=== PATIENT | male | born 1990 | race Caucasian/White ===

== ENCOUNTER → 2017-11-07 15:29 | Outpatient (CLI) | payer OTHER | END | disposition home or self-care (01) | LOC: LAB 15:29 | DX: Z11.3 Encounter for screening for infections with a predominantly sexual mode of transmission (principal) ==

== ENCOUNTER 2019-05-14 10:53 | Emergency (ER) | payer OTHER ==
[~2019-05-14] VITALS: Ht 177.8 cm; Wt 102.1 kg
== END 2019-05-14 13:49 | disposition home or self-care (01) ==
LOC: ER 10:53
DX: J11.1 Influenza due to unidentified influenza virus with other respiratory manifestations (principal)

== ENCOUNTER 2019-06-13 11:15 | Emergency (ER) | payer OTHER ==
[~2019-06-13] VITALS: Ht 177.8 cm; Wt 103.4 kg
== END 2019-06-13 14:56 | disposition home or self-care (01) ==
LOC: ER 11:15
DX: R07.89 Other chest pain (principal)

== ENCOUNTER → 2020-01-30 | Outpatient (CLI) | payer OTHER | END | disposition home or self-care (01) | LOC: PPH VACUNA 09:00 | DX: Z23 Encounter for immunization (principal) ==